=== PATIENT | female | born 1995 | race Caucasian/White ===

== ENCOUNTER 2021-02-12 03:40 | Inpatient (IN) | payer SELFPAY ==
[~2021-02-12] VITALS: Ht 165.1 cm; Wt 59.0 kg
[2021-02-12 03:42] VITALS: BP 105/59
--- NOTE | 2021-02-12 03:42 | NUR ---
PT TAKEN TO BED 6
--- NOTE | 2021-02-12 03:43 | NUR ---
PATIENT BIB SELF FOR C/O FOR ATTEMPTED SUICIDE BY OVERDOSE ON "HANDFULL" OF TRAZODONE PILSS WITH UNKNOWN MG. PATIENT NOTED WITH PALE SKIN, LETHACRGIC, AND N/V. PATIENT VOMITED BLIE COLORED EMISIS APPROXIMATLY 100ML. PATIENT DENIES ANY ANABELLA AT THIS TIME. PATIENT ADMITS TO ATTEMPTING TO OVERDOSE ON PILSS IN AN ATTEMPT TO HARM HERSELF. PER PATIENT NOT HER FIRST ATTEMPT AT SUICIDE. STATES, "A FEW MONTHS AGO I TRIED TO CUT MY WRISTS TO TRY AND KILL MYSELF." PER PATIENT HAS STRONG FRIEND SUPPORT SYSTEM AND NO SPECIFIC EVENT OCCURED TO TRIGGER SI ATTEMPT. MEDHX: DEPRESSION NKA
--- NOTE | 2021-02-12 03:43 | NUR ---
Dr. Gerard examining patient.
[2021-02-12] MEDS ORDERED: NACL 0.9% 1,000 ML IV ONE ×3 (03:55→07:40)
--- NOTE | 2021-02-12 04:24 | NUR ---
CALLED POISON CONTROL AND SPOKE WITH ARNAV. GAVE RECOMENDATIONS OF OBSERVATION OF BLOOD BANK CALENDAR CONTROL CLERK DEPRESSION, DECREASED HR, DECREASED BP, AND PROGLONGED QT INTERVAL. RECOMENDATIONS TO REPEATE EKG IN 4 HOURS.
--- NOTE | 2021-02-12 04:25 | NUR ---
Per Poison control if Patient's QT interval greater than 500 Magnesium should be given.
[2021-02-12 04:33] LABS: BASOPHILS % (AUTO) 0.7 % (0.0-2.0); EOSINOPHILS # (AUTO) 0.2 K/uL (0-0.4); EOSINOPHILS % (AUTO) 4.2 % (0.0-4.0); HEMATOCRIT 40.4 % (36-48); HEMOGLOBIN 13.6 g/dL (12.0-16.0); LYMPHOCYTES # (AUTO) 2.2 K/uL (2.5-16.5); MEAN CORPUSCULAR HEMOGLOBIN 30 pg (27-31); MEAN CORPUSCULAR HGB CONC 34 g/dL (33-37); MEAN CORPUSCULAR VOLUME 88.5 fL (80-94); MONOCYTES # (AUTO) 0.3 K/uL (0.8-1.0); NEUTROPHILS # (AUTO) 1.5 K/uL (1.8-7.7); NEUTROPHILS % (AUTO) 35.1 % (42.2-75.2); PLATELET COUNT (AUTO) 161 K/uL (140-450); RED BLOOD CELL COUNT(AUTO) 4.57 MIL/uL (4.20-5.40); WHITE BLOOD COUNT (AUTO) 4.1 K/uL (4.8-10.8)
[2021-02-12 04:42] LABS: ALBUMIN 4.4 g/dL (3.4-5.0); ANION GAP 14.9 (8-16); ASPARTATE AMINOTRANSFERASE 17 U/L (15-37); CARBON DIOXIDE 26.1 mmol/L (21-32); CHLORIDE 104 mmol/L (98-107); CREATININE 0.7 mg/dL (0.6-1.3); GFR ARICAN-AMERICAN 133 mL/min (>90); GLUCOSE 109 mg/dL (74-106); SODIUM SERUM 142 mmol/L (136-145); TOTAL BILIRUBIN 0.2 mg/dL (0.0-1.0); UREA NITROGEN, BLOOD 17 mg/dL (7-18)
[2021-02-12 04:44] LABS: ACETAMINOPHEN < 0.5 ug/ml (10-30); SALICYLATE < 2.8 mg/dL (2.8-20.0)
--- NOTE | 2021-02-12 04:45 | NUR ---
With permission from patient Jay Sarmad (boyfriend) able to recive medical information about patient's status and can recive updates on condition. [phone]
--- NOTE | 2021-02-12 04:48 | NUR ---
PLACED PT ON A 5150 HOLD FOR DANGER TO SELF. PT TOLD ME THAT SHE TOOK THE PILLS WITH THE INTENTION OF KILLING HERSELF. PT MADE AWARE THAT SHE IS ON A 5150 72HOUR HOLD.
[2021-02-12] MEDS ORDERED: POTASSIUM CHLORIDE 10 MEQ TABER PO ONE (05:45)
--- NOTE | 2021-02-12 05:50 | NUR ---
ERMD MADE AWARE OF LOW BP READING. NEW ORDER FOR ANOTHER 1L BOLUS GIVEN. PATIENT REMAINS ON CAGE/VAULT SUPERVISOR. PATIENT RESPONSIVE TO VERBAL STIMULI.
--- NOTE | 2021-02-12 05:51 | NUR ---
PATIENT STATES UNABLE TO GIVE URINE SAMPLE AT THIS TIME. SHAREE MADE AWARE.
[2021-02-12] MEDS ORDERED: KCL 20 MEQ/WATER INJ PREMIX 100 ML IV ONE (06:15)
--- NOTE | 2021-02-12 07:12 | NUR ---
REPORT RECEIVED FROM YADI LONDONO FOR TRANSFER OF CARE
--- NOTE | 2021-02-12 07:31 | NUR ---
Pt report given to YADI EPSTEIN. Transfer of care at this time.
--- NOTE | 2021-02-12 07:32 | NUR ---
RECEIVED REPORT FROM YADI MICHAEL. TRANSFER OF CARE AT THIS TIME.
--- NOTE | 2021-02-12 07:50 | NUR ---
PT RESTING IN BED, VISIBLE EQUAL RISE AND FALL OF CHEST, VSS, WILL CONTINUE TO MONITOR.
--- NOTE | 2021-02-12 07:52 | NUR ---
GAVE REPORT TO YADI MONTGOMERY FOR PENDING TRANSFER. ETA 10 MINUTES.
--- NOTE | 2021-02-12 08:21 | NUR ---
Patient will be admitted to care of DR. MCMILLAN. Admited to TELE. Will go to room 113. Belongings list completed. Report to YADI MONTGOMERY.
[2021-02-12 08:30] VITALS: BP 96/51
--- NOTE | 2021-02-12 08:30 | NUR ---
PT ARRIVED TO UNIT VIA GURNEY AND AMBULATED TO BED. PT IS AWAKE AND ALERT. A&OX4. ON RA WITH BREATHING UNLABORED. PT APPEARS TO BE VERY DROWSY AND STATES SHE "IS FEELING TIRED." PT IS ANSWERING QUESTIONS APPROPRIATELY. DENIES SUICIDAL IDEATION. ON 5150 HOLD WITH SITTER AT BEDSIDE. SKIN IS WARM, DRY, AND INTACT. IV IS IN PLACE IN THE LEFT AC 20 GAUGE RUNNING NS AT 80 ML/HR. PT IS STABLE. WILL CONTINUE TO MONITOR.
--- NOTE | 2021-02-12 09:30 | NUR ---
PT IS UP TO THE RESTROOM. URINE WAS COLLECTED AND SENT TO THE LAB. PT AMBULATED WITH STEADY GAIT. PT IS MORE AWAKE BUT STILL SLIGHTLY DROWSY. BACK IN BED AND GOING TO SLEEP. WILL PERMISSION PT ALLOWED ME TO PROVIDE INFORMATION TO BOYFRIEND DAVIAN.
[2021-02-12] MEDS ORDERED: HYDROcodone/APAP 7.5/325 MG 1 TAB PO PRN (09:35)
[2021-02-12] MEDS ORDERED: ZOLPIDEM 5 MG TAB PO PRN (09:35)
[2021-02-12] MEDS ORDERED: ONDANSETRON 4 MG/2 ML VIAL IM/IVP PRN (09:35)
[2021-02-12] MEDS ORDERED: ACETAMINOPHEN 325 MG TAB PO PRN (09:35)
[2021-02-12] MEDS ORDERED: DOCUSATE SODIUM 100 MG GELCAP PO PRN (09:35)
[2021-02-12] MEDS ORDERED: guaiFENesin DM 200/20 MG-10 ML 10 ML UDC PO PRN (09:35)
[2021-02-12] MEDS ORDERED: NACL 0.9% 1,000 ML IV SCH (09:35)
[2021-02-12] MEDS ORDERED: POTASSIUM CHLORIDE 10 MEQ TABER PO PRN (09:35)
[2021-02-12] MEDS: NACL 0.9% 1,000 ML IV SCH ×2 (09:57→17:36)
--- NOTE | 2021-02-12 09:59 | NUR ---
LEFT A MESSAGE FOR DR. Cooper'S OFFICE FOR PSYCH EVAL. INFORMED THEM ON THE MESSAGE THAT THERE WAS A NEW CONSULT IN 113 FOR A 5150 HOLD PSYCH EVAL. LEFT PHONE NUMBER, WILL WAIT FOR CALL BACK.
--- NOTE | 2021-02-12 10:08 | NUR ---
RECEIVED A CALL BACK FROM MICHAEL FOR [facility] DR. Cooper'S OFFICE. ALL INFORMATION PROVIDED AND FACE SHEET FAXED TO OFFICE. SHE WILL CALL BACK WITH A TIME TO BE EVALUATED BY DR. Cooper VIA TELE PSYCH.
--- NOTE | 2021-02-12 10:43 | NUR ---
RECEIVED CALL BACK FROM MICHAEL AT DR. Cooper'S OFFICE AND SHE STATED THAT THERE WILL BE A TELE PSYCH CALL AT 1300 PM.
--- NOTE | 2021-02-12 11:00 | NUR ---
RECEIVED CALL FROM [employer] [facility] AND ANSWERED ALL QUESTIONS. PROVIDED LAST SET OF VITAL SIGNS. REP CLEARED PT BY POISON CONTROL.
--- NOTE | 2021-02-12 11:30 | NUR ---
SITTER IS AT BEDSIDE. PT IS SLEEPING. WOKE PT UP BRIEFLY AND PT RESPONDED TO QUESTIONS APPROPRIATELY. PT DID NOT EAT BREAKFAST. ASKED IF HE HAD ANY THOUGHTS OF HARMING HERSELF AND PT DENIED AT THIS TIME. NO SUICIDAL IDEATION. WILL CONTINUE TO MONITOR.
[2021-02-12 11:40] LABS: APPEARANCE,URINE CLEAR (CLEAR); BILIRUBIN,URINE NEGATIVE (NEGATIVE); BLOOD, URINE NEGATIVE (NEGATIVE); COLOR,URINE YELLOW (YELLOW); LEUKOCYTE ESTERASE ,URINE TRACE (NEGATIVE); NITRITE, URINE NEGATIVE (NEGATIVE); PH,URINE 6.5 (5.0-9.0); UGLUCOSE NEGATIVE (NEGATIVE)
[2021-02-12 11:50] LABS: RBC,URINE 0-5 /HPF (0-5); WBC,URINE 0-5 /HPF (0-5)
[2021-02-12 11:58] LABS: FREE T4 (FREE THYROXINE) 0.81 ng/dL (0.76-1.46); MAGNESIUM 1.8 mg/dL (1.8-2.4); PHOSPHORUS 3.3 mg/dL (2.5-4.9); THYROID STIMULATING HORMONE 2.03 uIU/mL (0.34-3.74)
[2021-02-12 12:00] VITALS: BP 108/52
[2021-02-12 12:12] LABS: PROTHROMBIN TIME 11.1 secs (10.8-13.4)
[2021-02-12 12:16] LABS: CHOL/HDL RATIO 2.5 (1-4.5)
--- NOTE | 2021-02-12 13:00 | NUR ---
PT IS SITTING UP IN BED, EATING LUNCH. NO DISTRESS NOTED. PT DENIES DIZZINESS OR LIGHTHEADEDNESS. SR ON TELE MONITOR. PT IS STABLE.
--- NOTE | 2021-02-12 14:00 | NUR ---
DR. Cooper (PSYCH DOCTOR) SPOKE TO PT FOR PSYCH EVAL. AFTER LENGTHY CONVERSATION, DR. Cooper DETERMINED THAT PT IS CLEARED FROM PSYCHIATRIC STANDPOINT AND DOES NOT NEED INPATIENT PSYCH TREATMENT. SHE STATED TO HAVE THE PT FOLLOW UP OUTPATIENT TO START HER ON ANTIDEPRESSANT MEDICATION. PT IS AWARE. INFORMED DR. MCMILLAN OF THIS INFORMATION.
--- NOTE | 2021-02-12 14:55 | NUR ---
PT WAS GIVEN TYLENOL FOR HEADACHE. PT STATES THE HEADACHE HAS BEEN GETTING WORSE OVER THE LAST HOUR. WILL CONTINUE TO MONITOR HEADACHE.
--- NOTE | 2021-02-12 14:59 | NUR ---
PT STATED SHE IS FEELING NAUSEOUS AND WAS GIVEN ZOFRAN FOR NAUSEA. WILL MONITOR FOR NAUSEA.
[2021-02-12 16:00] VITALS: BP 101/45
--- NOTE | 2021-02-12 17:00 | NUR ---
PT IS SLEEPING. CHEST RISE AND FALL SYMMETRICAL. IV FLUIDS ARE INFUSING. NO DISTRESS NOTED. SITTER AT BEDSIDE.
--- NOTE | 2021-02-12 19:09 | NUR ---
ENDORSED TO SHEET ROCK FINISHER NURSE FOR CONTINUITY OF CARE. PT IS STABLE. PLAN OF CARE DISCUSSED.
--- NOTE | 2021-02-12 19:15 | NUR ---
RECEIVED PT AWAKE SITTING UP ON BED EATING DINNER, AAOX4, ABLE TO MAKE NEEDS KNOWN, DENIES ANY SUICIDAL IDEATION, DENIES ANY PAIN, NO SOB NOTED, IVF INFUSING WELL, MAINTAINED ON DROPLET PRECAUTION FOR R/O COVID, PLAN OF CARE DISCUSSED, CALL LIGHT WITHIN REACH.
[2021-02-12 20:00] VITALS: BP 107/59
--- NOTE | 2021-02-12 22:30 | NUR ---
SEEN PT AWAKE WATCHING TV, NO NEEDS AT THIS TIME, MONITORED CLOSELY.
[2021-02-13] VITALS: BP 103/51
--- NOTE | 2021-02-13 01:00 | NUR ---
ROUNDS MADE, SEEN PT SLEEPING, VISIBLE CHEST RISE AND FALL, NO SIGNS OF DISTRESS, IVF INFUSING WELL, CONTINUE TO MONITOR CLOSELY.
[2021-02-13] MEDS: NACL 0.9% 1,000 ML IV SCH ×2 (01:22→10:35)
[2021-02-13 04:00] VITALS: BP 109/55
--- NOTE | 2021-02-13 04:00 | NUR ---
PT SLEEPING, VITAL SIGNS TAKEN, SB ON TELE, ASYMPTOMATIC, NO SIGNS OF DISTRESS, IVF INFUSING WELL.
[2021-02-13 06:50] LABS: BASOPHILS % (AUTO) 0.4 % (0.0-2.0); EOSINOPHILS # (AUTO) 0.2 K/uL (0-0.4); EOSINOPHILS % (AUTO) 3.9 % (0.0-4.0); HEMATOCRIT 33.9 % (36-48); HEMOGLOBIN 11.5 g/dL (12.0-16.0); LYMPHOCYTES % (AUTO) 47.5 % (20.5-51.1); MEAN CORPUSCULAR HEMOGLOBIN 30 pg (27-31); MEAN CORPUSCULAR HGB CONC 34 g/dL (33-37); MEAN CORPUSCULAR VOLUME 89.2 fL (80-94); MONOCYTES # (AUTO) 0.3 K/uL (0.8-1.0); MONOCYTES % (AUTO) 7.1 % (1.7-9.3); NEUTROPHILS # (AUTO) 1.7 K/uL (1.8-7.7); NEUTROPHILS % (AUTO) 41.1 % (42.2-75.2); PLATELET COUNT (AUTO) 145 K/uL (140-450); RED BLOOD CELL COUNT(AUTO) 3.81 MIL/uL (4.20-5.40); RED CELL DISTRIBUTION WIDTH 13.3 % (11.6-13.7); WHITE BLOOD COUNT (AUTO) 4.2 K/uL (4.8-10.8)
--- NOTE | 2021-02-13 07:20 | NUR ---
PT SLEEPING, NO SIGNS OF DISTRESS, AWAITING PCR RESULT, REPORT GIVEN TO CARLIE FOR CONTINUITY OF CARE.
--- NOTE | 2021-02-13 07:30 | NUR ---
PATIENT RECEIVED FROM HARDWARE SALES ASSISTANT RN . PT RESTING IN BED, EYES CLOSED, NO S/SX OF DISTRESS BREATHING SYMMETRICAL AND UNLABORED. BED IN LOW POSITION BELONGINGS WITHIN REACH NON SLIP SOCKS ON . CALL LIGHT WITHIN REACH. ALL SAFETY MEASURES ARE IN PLACE.
[2021-02-13 07:34] LABS: ANION GAP 11.8 (8-16); CREATININE 0.7 mg/dL (0.6-1.3); POTASSIUM 3.8 mmol/L (3.5-5.1)
[2021-02-13 08:00] VITALS: BP 99/47
[2021-02-13 08:07] LABS: T4 (THYROXINE) 5.7 ug/dL (4.5-12.0)
[2021-02-13] MEDS: PANTOPRAZOLE 40 MG TABEC PO SCH ×2 (09:02→09:04)
--- NOTE | 2021-02-13 09:05 | NUR ---
MEDICATIONS GIVEN PER MD ORDER. PT EDUCATED AND VERBALIZED UNDERSTANDING . NO S/SX OF DISTRESS AT THIS TIME CALL LIGHT WITHIN REACH ALL SAFETY MEASURES ARE IN [place],
--- NOTE | 2021-02-13 09:19 | NUR ---
PATIENT HAS BEEN SCREENED AND CATEGORIZED HIGH NUTRITION RISK. PATIENT WILL BE SEEN WITHIN 1-2 DAYS OF ADMISSION. 02/13/[address]
--- NOTE | 2021-02-13 11:24 | NUR ---
PATIENT DISCHARGE INSTRUCTIONS COMPLETE. PATIENT RESTING IN BED PERSONAL BELONGINGS GIVEN BACK TO PATIENT . PATIENT VERIFIED ALL BELONGINGS WERE PRESENT. ALL SAFETY MEASURES IN PLACE.
[2021-02-13 12:00] VITALS: BP 104/59
--- NOTE | 2021-02-13 12:39 | NUR ---
PATIENT LEFT UNIT IN PRIVATE VEHICLE . PATIENT REFUSED A WHEEL CHAIR. PT AMBULATED TOLERATED WELL.
--- NOTE | 2021-02-13 12:48 | NUR ---
02/13/21 RD INITIAL ASSESSMENT COMPLETED PLEASE REFER TO NUTRITION ASSESSMENT UNDER CARE ACTIVITY FOR ESTIMATED NUTRITIONAL NEEDS. 1. CONTINUE REGULAR DIET TOLERATED 2. ENCOURAGE INCREASED PO INTAKE 3. RD TO FOLLOW-UP 3-5 DAYS, MODERATE RISK REVIEWED BY ANNA MARIE RIBERA RD
--- NOTE | 2021-02-13 14:06 | NUR ---
DC PLANNING: THE PATIENT PRESENTED TO [facility] ED WITH C/O N/V AFTER TAKING MULTIPLE TRAZADONE PILLS, REPORTS FEELING SUICIDAL AFTER HAVING AN ARGUMENT WITH HER PARTNER. THE PATIENT WAS PLACED ON A 5150 HOLD, STARTED ON K-DUR FOR K+ FO 3, PROTONIX, AMBIEN, ZOFRAN AND IVF'S. THE PATIENT WAS EVALUATED BY PSYCHIATRY VIA TELEHEALTH ASSESSMENT, RECOMMENDATION DISCHARGE WITH OUTPATIENT FOLLOW UP, NO MEDS AND TERMINATE THE 5150 HOLD. PATIENT DC'D TO HOME TODAY, CM WILL FOLLOW NEEDED.
== END 2021-02-13 13:23 | disposition home or self-care (01) | DRG 917 ==
LOC: MED 03:40 → MTU 07:59
PROVIDERS: ADMIT Family Medicine; ATTEND Family Medicine
DX: T50.902A Poisoning by unspecified drugs, medicaments and biological substances, intentional self-harm, initial encounter (principal); G92.9 Unspecified toxic encephalopathy; R45.851 Suicidal ideations; E87.6 Hypokalemia; Z20.822 Contact with and (suspected) exposure to COVID-19; F32.A Depression, unspecified; Y92.89 Other specified places as the place of occurrence of the external cause
CPT/HCPCS: 36415; 80048; 80053; 81001; 82150; 83036; 83690; 83735; 83880; 84100; 84436; 84439; 84443; 84479; 84484; 84703; 85025; 85610; 85730; 87081; 93005; G0480; G0482; J2405; J3480; U0003